=== PATIENT | male | born 1950 | race Caucasian/White ===

== ENCOUNTER → 2021-02-01 | Outpatient (CLI) | payer OTHER ==
[~2021-02-01] MED LIST: ALLOPURINOL300 MG PO; CIPROFLOXACIN500 M1 PO; HYDROCHLOROTHIA25 MG PO; LIPITOR40 MG PO; LORATADINE10 MG PO; LOSARTAN POTAS100 MG PO; SYNTHROID88 MCG PO
== END ==
LOC: HEART 5 14:30
DX: R00.2 Palpitations (principal)